=== PATIENT | male | born 1955 | race Hispanic/Latino ===

== ENCOUNTER → 2018-07-02 | Outpatient (CLI) | payer OTHER ==
[~2018-07-02] MED LIST: IOHEXOL-350 75 ML VIAL IV ONE
== END | disposition home or self-care (01) ==
LOC: RAH 07:32
PROVIDERS: ATTEND Internal Medicine Cardiovascular Disease
DX: R07.9 Chest pain, unspecified (principal)
CPT/HCPCS: 75574; Q9967

== ENCOUNTER 2018-07-22 05:51 | Day surgery (SDC) | payer OTHER ==
[2018-07-19 11:10] VITALS: BP 142/82
[2018-07-19 11:46] LABS: BASOPHILS % (AUTO) 0.5 % (0.0-5.0); HEMATOCRIT 48.5 % (42-54); LYMPHOCYTES % (AUTO) 24.9 % (21.0-51.0); MEAN CORPUSCULAR HEMOGLOBIN 31.7 pg (27.0-33.0); MEAN CORPUSCULAR HGB CONC 33.7 g/dL (32.0-36.0); MEAN CORPUSCULAR VOLUME 94.2 fL (79-99); MONOCYTES % (AUTO) 6.6 % (3.0-13.0); PLATELET COUNT (AUTO) 128 K/uL (130-400); RED BLOOD CELL COUNT(AUTO) 5.15 MIL/uL (4.50-6.20); RED CELL DISTRIBUTION WIDTH 14.4 % (11.0-15.5); WHITE BLOOD COUNT (AUTO) 6.7 K/uL (4.8-10.8)
[2018-07-19 11:58] LABS: POTASSIUM 4.6 mmol/L (3.5-5.1)
[2018-07-19 12:03] LABS: INR 1.01 (0.85-1.15); PARTIAL THROMBOPLASTIN TIME 35.2 SEC (26.3-35.5); PROTHROMBIN TIME 10.6 SEC (9.6-11.6)
[2018-07-19 12:07] LABS: APPEARANCE,URINE Clear (CLEAR); BILIRUBIN,URINE Negative (NEGATIVE); COLOR,URINE Yellow (YELLOW); GLUCOSE, URINE (UA) Negative (NEGATIVE); KETONES,URINE Negative (NEGATIVE); LEUKOCYTE ESTERASE ,URINE Negative (NEGATIVE); NITRATE,URINE Negative (NEGATIVE); OCCULT BLOOD,URINE Negative (NEGATIVE); PROTEIN,URINE Negative (NEGATIVE); UROBILINOGEN,URINE 0.2 mg/dL (0.2-1.0)
--- NOTE | 2018-07-21 09:09 | NUR ---
LABS ABNORMAL PLT REPORTED TO JENARO GONZALES. NO FURTHER ORDERS GIVEN
--- NOTE | 2018-07-21 13:49 | NUR ---
ALLERGY INFORMED CHRISTIAN WARE OF PT ALLERGY TO TOPICAL IODINE. ORDERS RECEIVED TO GIVE SOLUMEDROL 125MG IV [employer] DAY OF PROCEDURE, GIVE SINGULAIR 20MG PO [employer]INCIPAL, BENADRYL 25 MG IV [employer]INCIPAL AND WILL ALSO CALL IN STEROIDS FOR PT TO TAKE PRIOR TO PROCEDURE.
--- NOTE | 2018-07-21 15:11 | NUR ---
ALLERGY PT STATES HAS SOME CONCERN ABOUT TAKING STEROIDS PRIOR TO PROCEDURE. STATES HES FINE WITH MEDICATION ORDERED FOR DAY OF PROCEDURE. HE HAS A CALL PLACED TO [facility] TO VOICE CONCERN.
[2018-07-22] VITALS (11 sets, daily range): BP systolic 123–144; BP diastolic 66–77
[~2018-07-22] VITALS: Ht 179.1 cm; Wt 98.3 kg
[~2018-07-22 05:51] MED LIST changes: +DiphenhydrAMINE HCL 50 MG/ML VIAL IVP SCH; -IOHEXOL-350 75 ML VIAL IV ONE; +LEVO112T7 PO; +METHYLPREDNISOLONE SOD SUCC 125MG/2ML VIAL IVP SCH; +MONTELUKAST SODIUM 10 MG TAB PO SCH; +ROSU5TAB PO
[2018-07-22] MEDS ORDERED: SODIUM CHLORIDE 0.9% 1000ML 1,000 ML IV ONE (07:04)
[2018-07-22] MEDS ORDERED: BIVALIRUDIN 250 MG/VIAL IV ONE (07:15)
[2018-07-22] MEDS ORDERED: IOHEXOL-350 50ML VIAL IV ONE (07:15)
[2018-07-22] MEDS ORDERED: IOHEXOL 350 MG/ML 100ML INFUS..BTL IV ONE (07:15)
[2018-07-22] MEDS ORDERED: LIDOCAINE HCL 2% 20ML ONE (07:16)
[2018-07-22] MEDS ORDERED: NITROGLYCERIN 5 MG/ML 10 ML VIAL IV ONE (07:16)
[2018-07-22] MEDS ORDERED: FENTANYL CITRATE PF 50 MCG/1 ML 2ML VIAL ONE (07:39)
[2018-07-22] MEDS ORDERED: MIDAZOLAM HCL 1 MG/ML 2ML VIAL ONE (07:39)
[2018-07-22] MEDS ORDERED: SODIUM CHLORIDE 0.9% 1000ML 1,000 ML IV SCH (08:13)
[2018-07-22] MEDS ORDERED: GLUCAGON 1MG KIT 1 MG ML IM PRN (08:15)
[2018-07-22] MEDS ORDERED: HYDRALAZINE HCL 20 MG/ML VIAL IV PRN (08:15)
[2018-07-22] MEDS ORDERED: NITROGLYCERIN 0.4 MG SL TAB SL PRN (08:15)
[2018-07-22] MEDS ORDERED: DEXTROSE 50%-WATER 50 ML DISP.SYRIN IV PRN (08:15)
== END 2018-07-22 12:20 | disposition home or self-care (01) ==
LOC: DAH 05:51
PROVIDERS: ATTEND Internal Medicine Cardiovascular Disease
DX: I25.119 Atherosclerotic heart disease of native coronary artery with unspecified angina pectoris (principal); E03.9 Hypothyroidism, unspecified; E78.00 Pure hypercholesterolemia, unspecified; C85.90 Non-Hodgkin lymphoma, unspecified, unspecified site; Z98.890 Other specified postprocedural states; Z79.899 Other long term (current) drug therapy; Z79.01 Long term (current) use of anticoagulants
CPT/HCPCS: 36415; 71045; 80048; 81003; 85025; 85610; 85730; 93005; 93458; A4606; C1760; C1894 ×2; J1200; J1644; J2250; J2930; J3010; J3490 ×2; J7030; Q9965; Q9967 ×2; 99156; 99157; J0583

== ENCOUNTER → 2019-08-19 | Outpatient (CLI) | payer OTHER ==
[~2019-08-19] MED LIST changes: -DiphenhydrAMINE HCL 50 MG/ML VIAL IVP SCH; -METHYLPREDNISOLONE SOD SUCC 125MG/2ML VIAL IVP SCH; -MONTELUKAST SODIUM 10 MG TAB PO SCH
== END | disposition home or self-care (01) ==
LOC: RAH 08:09
PROVIDERS: ATTEND Internal Medicine
DX: M51.26 Other intervertebral disc displacement, lumbar region (principal); G57.02 Lesion of sciatic nerve, left lower limb
CPT/HCPCS: 72148

== ENCOUNTER 2019-09-15 07:00 | Day surgery (SDC) | payer OTHER ==
[~2019-09-15] VITALS: Ht 175.3 cm; Wt 117.9 kg
[2019-09-15] VITALS (10 sets, daily range): BP systolic 95–119; BP diastolic 61–75
[2019-09-15] MEDS ORDERED: SODIUM CHLORIDE 0.9% 1000ML 1,000 ML IV ONE (07:18)
[2019-09-15] MEDS ORDERED: PROPOFOL 10 MG/ML 20ML VIAL IV ONE ×3 (08:29→08:56)
[2019-09-15] MEDS ORDERED: LIDOCAINE HCL 2% 20ML ONE (08:29)
[2019-09-15] MEDS ORDERED: GLYCOPYRROLATE 0.2 MG/ML 5 ML VIAL ONE (08:29)
[2019-09-15] MEDS ORDERED: SIMETHICONE 40 MG/0.6 ML ML ONE (08:40)
== END 2019-09-15 09:55 | disposition home or self-care (01) ==
LOC: RAH 07:00 → DAH 07:00 → RAH 09:55
PROVIDERS: ATTEND Internal Medicine
DX: Z12.11 Encounter for screening for malignant neoplasm of colon (principal); D12.0 Benign neoplasm of cecum; K29.50 Unspecified chronic gastritis without bleeding; K57.30 Diverticulosis of large intestine without perforation or abscess without bleeding; K64.0 First degree hemorrhoids; E78.5 Hyperlipidemia, unspecified; E03.9 Hypothyroidism, unspecified; R13.10 Dysphagia, unspecified; K31.89 Other diseases of stomach and duodenum; Z86.010 Personal history of colon polyps; Z79.899 Other long term (current) drug therapy; Z11.59 Encounter for screening for other viral diseases
CPT/HCPCS: 36415; 43239; 43249; 45380; 45385; A4215; A4221; A4222; A4223; A4606; A4620; A4663; J2704 ×3; J3490 ×2; J7030; U0003

== ENCOUNTER → 2019-10-07 | Outpatient (CLI) | payer OTHER ==
[2019-10-07 08:19] LABS: BASOPHILS % (AUTO) 0.5 % (0.0-5.0); EOSINOPHILS % (AUTO) 1.5 % (0.0-8.0); HEMATOCRIT 46.9 % (42-54); LYMPHOCYTES % (AUTO) 26.1 % (21.0-51.0); MEAN CORPUSCULAR HEMOGLOBIN 31.4 pg (27.0-33.0); MEAN CORPUSCULAR HGB CONC 33.5 g/dL (32.0-36.0); MEAN CORPUSCULAR VOLUME 93.8 fL (79-99); MONOCYTES % (AUTO) 8.5 % (3.0-13.0); NEUTROPHILS % (AUTO) 63.1 % (40.0-77.0); PLATELET COUNT (AUTO) 137 K/uL (130-400); WHITE BLOOD COUNT (AUTO) 6.1 K/uL (4.8-10.8)
[2019-10-07 09:04] LABS: ALBUMIN 4.1 g/dL (3.5-5.0); BILIRUBIN,TOTAL 1.2 mg/dL (0.2-1.0); CREATININE 1.2 mg/dL (0.5-1.5); THYROID STIMULATING HORMONE 1.22 uIU/mL (0.36-3.74); TOTAL PROTEIN, SERUM 6.8 g/dL (6.0-8.3)
[2019-10-07 09:24] LABS: HEMOGLOBIN A1C 5.7 % (4.0-6.0)
== END | disposition home or self-care (01) ==
LOC: LAB 07:53
PROVIDERS: ATTEND Internal Medicine
DX: Z00.00 Encounter for general adult medical examination without abnormal findings (principal); E78.00 Pure hypercholesterolemia, unspecified; E55.9 Vitamin D deficiency, unspecified; Z12.5 Encounter for screening for malignant neoplasm of prostate
CPT/HCPCS: 36415; 80053; 80061; 82306; 83036; 84153; 84443; 85025

== ENCOUNTER → 2020-12-10 | Outpatient (CLI) | payer OTHER ==
[2020-12-10 11:55] LABS: BASOPHILS % (AUTO) 0.6 % (0.0-5.0); EOSINOPHILS % (AUTO) 1.6 % (0.0-8.0); HEMATOCRIT 46.3 % (42-54); LYMPHOCYTES % (AUTO) 27.5 % (21.0-51.0); MEAN CORPUSCULAR HEMOGLOBIN 31.3 pg (27.0-33.0); MEAN CORPUSCULAR VOLUME 94.7 fL (79-99); MONOCYTES % (AUTO) 7.8 % (3.0-13.0); NEUTROPHILS % (AUTO) 62.4 % (40.0-77.0); PLATELET COUNT (AUTO) 137 K/uL (130-400); RED BLOOD CELL COUNT(AUTO) 4.89 MIL/uL (4.50-6.20); RED CELL DISTRIBUTION WIDTH 13.9 % (11.0-15.5); WHITE BLOOD COUNT (AUTO) 7.1 K/uL (4.8-10.8)
[2020-12-10 12:48] LABS: ALBUMIN 4.1 g/dL (3.5-5.0); BILIRUBIN,TOTAL 1.7 mg/dL (0.2-1.0); CREATININE 0.9 mg/dL (0.5-1.5); POTASSIUM 4.1 mmol/L (3.5-5.1); THYROID STIMULATING HORMONE 0.66 uIU/mL (0.36-3.74); TOTAL PROTEIN, SERUM 6.9 g/dL (6.0-8.3)
== END | disposition home or self-care (01) ==
LOC: LAB 11:23
PROVIDERS: ATTEND Internal Medicine Endocrinology, Diabetes & Metabolism
DX: Z00.00 Encounter for general adult medical examination without abnormal findings (principal); E89.0 Postprocedural hypothyroidism; E78.00 Pure hypercholesterolemia, unspecified; E66.9 Obesity, unspecified
CPT/HCPCS: 36415; 80053; 80061; 82306; 84153; 84154; 84439; 84443; 84481; 85025

== ENCOUNTER 2021-02-28 13:00 | Observation (INO) | payer OTHER ==
[~2021-02-28] VITALS: Ht 175.3 cm; Wt 98.6 kg
[2021-03-04 08:39] LABS: BASOPHILS % (AUTO) 0.7 % (0.0-5.0); EOSINOPHILS % (AUTO) 2.3 % (0.0-8.0); HEMATOCRIT 46.2 % (42-54); LYMPHOCYTES % (AUTO) 28.1 % (21.0-51.0); MEAN CORPUSCULAR HEMOGLOBIN 30.6 pg (27.0-33.0); MEAN CORPUSCULAR HGB CONC 33.5 g/dL (32.0-36.0); MEAN CORPUSCULAR VOLUME 91.1 fL (79-99); MONOCYTES % (AUTO) 9.1 % (3.0-13.0); NEUTROPHILS % (AUTO) 59.4 % (40.0-77.0); PLATELET COUNT (AUTO) 137 K/uL (130-400); RED BLOOD CELL COUNT(AUTO) 5.07 MIL/uL (4.50-6.20); RED CELL DISTRIBUTION WIDTH 13.8 % (11.0-15.5); WHITE BLOOD COUNT (AUTO) 7.4 K/uL (4.8-10.8)
[2021-03-04 08:50] LABS: CREATININE 1.1 mg/dL (0.5-1.5)
[2021-03-06 10:58] VITALS: BP 137/74
[2021-03-06] MEDS: CLINDAMYCIN IVPB 900MG/50ML 50 ML IV SCH (11:00)
[2021-03-07] VITALS (19 sets, daily range): BP systolic 129–155; BP diastolic 60–85
[2021-03-07] MEDS ORDERED: BUPIVACAINE/EPI/PF 0.25% 30ML VIAL IJ ONE (06:59)
[2021-03-07] MEDS ORDERED: LACTATED RINGERS 1000ML 1,000 ML IV ONE (07:00)
[2021-03-07] MEDS ORDERED: DEXAMETHASONE SOD PHOSPHATE 10MG/ML 1ML VIAL ONE (07:36)
[2021-03-07] MEDS ORDERED: LIDOCAINE PF 100MG/5ML (2%) SYRINGE 5ML ONE (07:36)
[2021-03-07] MEDS ORDERED: SUCCINYLCHOLINE CHLORIDE 20 MG/ML 10 ML VIAL ONE (07:36)
[2021-03-07] MEDS ORDERED: GLYCOPYRROLATE 1 MG/5 ML SYRINGE ONE (07:37)
[2021-03-07] MEDS ORDERED: NEOSTIGMINE 5MG/5ML SYR IV ONE (07:37)
[2021-03-07] MEDS ORDERED: PROPOFOL 10 MG/ML 20ML VIAL IV ONE (07:37)
[2021-03-07] MEDS ORDERED: MIDAZOLAM HCL 1 MG/ML 2ML VIAL ONE (07:37)
[2021-03-07] MEDS ORDERED: ONDANSETRON 4MG INJ ONE (07:37)
[2021-03-07] MEDS ORDERED: ROCURONIUM 10MG/1ML SYR 10 MG/ML ML ONE (07:37)
[2021-03-07] MEDS ORDERED: FENTANYL CITRATE PF 50 MCG/1 ML 2ML VIAL ONE ×2 (07:38→12:13)
[2021-03-07] MEDS: CLINDAMYCIN IVPB 900MG/50ML 50 ML IV SCH (08:34)
[2021-03-07] MEDS ORDERED: THROMBIN-JMI 20000 UNIT KIT TP ONE (11:28)
== END 2021-03-07 15:20 | disposition home or self-care (01) ==
LOC: EDSTATUS 13:00 → DAHIP 03-07 06:25
PROVIDERS: ADMIT Surgery; ATTEND Surgery
DX: C73 Malignant neoplasm of thyroid gland (principal); Z20.822 Contact with and (suspected) exposure to COVID-19; E03.9 Hypothyroidism, unspecified; E78.00 Pure hypercholesterolemia, unspecified; E66.9 Obesity, unspecified; Z68.32 Body mass index [BMI] 32.0-32.9, adult; Z79.899 Other long term (current) drug therapy
CPT/HCPCS: 36415 ×2; 38510; 60240; 80048; 82310; 83970; 85025; 87635; 93005; A4215; A4216; A4221; A4222; A4223; A4600; A4649 ×2; A4663; A6206; C1713; G0378 ×5; G0379; J0330; J1100; J2001; J2250; J2405; J2704; J2710; J3010 ×2; J3490 ×3; J7120

== ENCOUNTER 2021-03-09 14:00 | Inpatient (IN) | payer OTHER ==
[~2021-03-09] VITALS: Ht 175.3 cm; Wt 90.9 kg
[2021-03-09 16:28] VITALS: BP 120/69
[2021-03-09] MEDS ORDERED: LACTATED RINGERS 1000ML 1,000 ML IV ONE (17:55)
[2021-03-09] MEDS ORDERED: MORPHINE 2 MG SYG IV PRN (18:00)
[2021-03-09] MEDS ORDERED: ONDANSETRON 4MG INJ IV PRN (18:00)
[2021-03-09] MEDS: LACTATED RINGERS 1000ML 1,000 ML IV SCH (18:00)
[2021-03-09 18:09] LABS: HEMATOCRIT 47.8 % (42-54); MEAN CORPUSCULAR HEMOGLOBIN 31.3 pg (27.0-33.0); MEAN CORPUSCULAR HGB CONC 33.3 g/dL (32.0-36.0); MEAN CORPUSCULAR VOLUME 94.1 fL (79-99); RED BLOOD CELL COUNT(AUTO) 5.08 MIL/uL (4.50-6.20); RED CELL DISTRIBUTION WIDTH 13.6 % (11.0-15.5)
[2021-03-09 18:28] LABS: BILIRUBIN,TOTAL 2.3 mg/dL (0.2-1.0); CREATININE 1.1 mg/dL (0.5-1.5); POTASSIUM 3.7 mmol/L (3.5-5.1); TOTAL PROTEIN, SERUM 7.5 g/dL (6.0-8.3)
[2021-03-09] MEDS ORDERED: DEXA6TAB7 PO (18:36)
[2021-03-09] MEDS ORDERED: ACET1TAB25 PO (18:36)
[2021-03-09] MEDS ORDERED: DEXAMETHASONE SOD PHOSPHATE 4 MG/ML 1ML VIAL ONE (19:55)
[2021-03-09 20:00] VITALS: BP 120/63
[2021-03-09] MEDS: PANTOPRAZOLE 40 MG/VIAL IVP SCH (20:10)
[2021-03-09] MEDS: DEXAMETHASONE SOD PHOSPHATE 4 MG/ML 1ML VIAL IVP SCH (20:10)
[2021-03-10] VITALS: BP 110/65
[2021-03-10 03:50] LABS: HEMATOCRIT 44.9 % (42-54); MEAN CORPUSCULAR HEMOGLOBIN 30.1 pg (27.0-33.0); MEAN CORPUSCULAR HGB CONC 32.5 g/dL (32.0-36.0); MEAN CORPUSCULAR VOLUME 92.6 fL (79-99); RED BLOOD CELL COUNT(AUTO) 4.85 MIL/uL (4.50-6.20); RED CELL DISTRIBUTION WIDTH 13.8 % (11.0-15.5); WHITE BLOOD COUNT (AUTO) 14.7 K/uL (4.8-10.8)
[2021-03-10 04:00] VITALS: BP 114/60
[2021-03-10 04:01] LABS: POTASSIUM 3.9 mmol/L (3.5-5.1)
[2021-03-10 07:50] VITALS: BP 115/60
[2021-03-10] MEDS: PANTOPRAZOLE 40 MG/VIAL IVP SCH ×2 (08:55→20:49)
[2021-03-10] MEDS: DEXAMETHASONE SOD PHOSPHATE 4 MG/ML 1ML VIAL IVP SCH ×3 (09:01→20:48)
[2021-03-10 10:59] VITALS: BP 125/63
[2021-03-10] MEDS: LACTATED RINGERS 1000ML 1,000 ML IV SCH ×3 (14:00→23:01)
[2021-03-10 16:29] VITALS: BP 120/66
[2021-03-10 20:00] VITALS: BP 125/64
[2021-03-11] VITALS (7 sets, daily range): BP systolic 110–136; BP diastolic 61–76
[2021-03-11 04:19] LABS: BASOPHILS % (AUTO) 0.1 % (0.0-5.0); HEMATOCRIT 44.1 % (42-54); LYMPHOCYTES % (AUTO) 6.6 % (21.0-51.0); MEAN CORPUSCULAR HEMOGLOBIN 30.7 pg (27.0-33.0); MEAN CORPUSCULAR HGB CONC 32.9 g/dL (32.0-36.0); MEAN CORPUSCULAR VOLUME 93.4 fL (79-99); MONOCYTES % (AUTO) 4.3 % (3.0-13.0); NEUTROPHILS % (AUTO) 88.5 % (40.0-77.0); PLATELET COUNT (AUTO) 155 K/uL (130-400); RED BLOOD CELL COUNT(AUTO) 4.72 MIL/uL (4.50-6.20); RED CELL DISTRIBUTION WIDTH 13.7 % (11.0-15.5); WHITE BLOOD COUNT (AUTO) 17.8 K/uL (4.8-10.8)
[2021-03-11 04:33] LABS: POTASSIUM 4.1 mmol/L (3.5-5.1)
[2021-03-11] MEDS: PANTOPRAZOLE 40 MG/VIAL IVP SCH ×2 (09:17→19:46)
[2021-03-11] MEDS: DEXAMETHASONE SOD PHOSPHATE 4 MG/ML 1ML VIAL IVP SCH ×3 (09:17→19:46)
[2021-03-11] MEDS: LACTATED RINGERS 1000ML 1,000 ML IV SCH ×2 (09:57→10:00)
[2021-03-12 04:00] VITALS: BP 122/75
[2021-03-12] MEDS: LACTATED RINGERS 1000ML 1,000 ML IV SCH ×2 (04:28→14:23)
[2021-03-12 06:00] LABS: MEAN CORPUSCULAR HEMOGLOBIN 30.7 pg (27.0-33.0); MEAN CORPUSCULAR HGB CONC 33.3 g/dL (32.0-36.0); MEAN CORPUSCULAR VOLUME 92.3 fL (79-99); RED BLOOD CELL COUNT(AUTO) 4.66 MIL/uL (4.50-6.20); RED CELL DISTRIBUTION WIDTH 13.7 % (11.0-15.5); WHITE BLOOD COUNT (AUTO) 15.7 K/uL (4.8-10.8)
[2021-03-12 06:13] LABS: CREATININE 0.9 mg/dL (0.5-1.5); POTASSIUM 4.2 mmol/L (3.5-5.1)
[2021-03-12 08:34] VITALS: BP 121/67
[2021-03-12] MEDS: PANTOPRAZOLE 40 MG/VIAL IVP SCH ×2 (09:21→21:47)
[2021-03-12] MEDS: DEXAMETHASONE SOD PHOSPHATE 4 MG/ML 1ML VIAL IVP SCH ×3 (09:21→21:47)
[2021-03-12 10:59] VITALS: BP 121/69
[2021-03-12 17:48] VITALS: BP 130/72
[2021-03-12 20:39] VITALS: BP 130/68
[2021-03-12 23:57] VITALS: BP 128/75
[2021-03-13] MEDS: LACTATED RINGERS 1000ML 1,000 ML IV SCH (01:35)
[2021-03-13 04:54] VITALS: BP 121/71
[2021-03-13] MEDS: DEXAMETHASONE SOD PHOSPHATE 4 MG/ML 1ML VIAL IVP SCH ×3 (07:58→21:00)
[2021-03-13 09:03] VITALS: BP 120/70
[2021-03-13] MEDS: PANTOPRAZOLE 40 MG/VIAL IVP SCH ×2 (09:11→21:41)
[2021-03-13 12:32] LABS: BASOPHILS % (AUTO) 0.1 % (0.0-5.0); HEMATOCRIT 47.1 % (42-54); LYMPHOCYTES % (AUTO) 4.9 % (21.0-51.0); MEAN CORPUSCULAR HEMOGLOBIN 31.3 pg (27.0-33.0); MEAN CORPUSCULAR HGB CONC 34.4 g/dL (32.0-36.0); MEAN CORPUSCULAR VOLUME 90.9 fL (79-99); MONOCYTES % (AUTO) 9.5 % (3.0-13.0); NEUTROPHILS % (AUTO) 84.9 % (40.0-77.0); PLATELET COUNT (AUTO) 155 K/uL (130-400); RED BLOOD CELL COUNT(AUTO) 5.18 MIL/uL (4.50-6.20); RED CELL DISTRIBUTION WIDTH 13.6 % (11.0-15.5)
[2021-03-13 12:56] LABS: CARBON DIOXIDE 27 mmol/L (21-32); CHLORIDE 105 mmol/L (101-111); CREATININE 0.9 mg/dL (0.5-1.5); GLOMERULAR FILTR. RATE CALC 91 mL/min (>60); GLUCOSE,RANDOM 108 mg/dL (70-105); POTASSIUM 3.9 mmol/L (3.5-5.1); SODIUM SERUM 140 mmol/L (136-145); UREA NITROGEN, BLOOD 23 mg/dL (7-18)
[2021-03-13 13:06] LABS: ALANINE AMINOTRANSFERASE 30 U/L (12-78); ALBUMIN 3.3 g/dL (3.5-5.0); ASPARTATE AMINOTRANSFERASE 12 U/L (10-37); BILIRUBIN,TOTAL 1.5 mg/dL (0.2-1.0); TOTAL PROTEIN, SERUM 6.3 g/dL (6.0-8.3)
[2021-03-13 13:14] LABS: CRP QUANTITATIVE < 2.00 mg/L (0.00-9.0)
[2021-03-13 13:30] VITALS: BP 111/68
[2021-03-13 13:55] LABS: ERYTHROCYTE SEDIMENTATION RATE 5 MM/HR (0-20)
[2021-03-13 17:18] VITALS: BP 115/71
[2021-03-13 19:15] VITALS: BP 126/73
[2021-03-14] VITALS: BP 109/65
[2021-03-14 05:03] VITALS: BP 106/69
[2021-03-14 05:13] LABS: EOSINOPHILS % (AUTO) 0.2 % (0.0-8.0); LYMPHOCYTES % (AUTO) 12.2 % (21.0-51.0); MEAN CORPUSCULAR HEMOGLOBIN 30.4 pg (27.0-33.0); MEAN CORPUSCULAR HGB CONC 33.2 g/dL (32.0-36.0); MEAN CORPUSCULAR VOLUME 91.7 fL (79-99); MONOCYTES % (AUTO) 15.5 % (3.0-13.0); NEUTROPHILS % (AUTO) 71.5 % (40.0-77.0); PLATELET COUNT (AUTO) 116 K/uL (130-400); RED CELL DISTRIBUTION WIDTH 13.5 % (11.0-15.5); WHITE BLOOD COUNT (AUTO) 10.4 K/uL (4.8-10.8)
[2021-03-14 05:32] LABS: ALBUMIN 2.8 g/dL (3.5-5.0); BILIRUBIN,TOTAL 1.6 mg/dL (0.2-1.0); CREATININE 1.2 mg/dL (0.5-1.5); POTASSIUM 3.6 mmol/L (3.5-5.1); TOTAL PROTEIN, SERUM 5.2 g/dL (6.0-8.3)
[2021-03-14 07:15] VITALS: BP 110/66
[2021-03-14] MEDS: DEXAMETHASONE SOD PHOSPHATE 4 MG/ML 1ML VIAL IVP SCH ×3 (09:00→21:00)
[2021-03-14] MEDS: PANTOPRAZOLE 40 MG/VIAL IVP SCH ×2 (09:14→21:26)
[2021-03-14 11:05] VITALS: BP 110/63
[2021-03-14] MEDS ORDERED: PHARMACY COMMUNICATION MISC SCH (13:30)
[2021-03-14 15:05] VITALS: BP 116/70
[2021-03-14] MEDS ORDERED: BIOTENE 44.3 ML SOLUTION MM PRN (17:00)
[2021-03-14 20:00] VITALS: BP 118/54
[2021-03-14] MEDS ORDERED: LACTATED RINGERS 1000ML 1,000 ML IV ONE (20:22)
[2021-03-14] MEDS: LACTATED RINGERS 1000ML 1,000 ML IV SCH (21:29)
[2021-03-15 00:07] VITALS: BP 135/69
[2021-03-15 04:01] VITALS: BP 128/69
[2021-03-15 04:59] LABS: BASOPHILS % (AUTO) 0.1 % (0.0-5.0); EOSINOPHILS % (AUTO) 0.9 % (0.0-8.0); HEMATOCRIT 46.4 % (42-54); LYMPHOCYTES % (AUTO) 16.9 % (21.0-51.0); MEAN CORPUSCULAR HEMOGLOBIN 30.9 pg (27.0-33.0); MEAN CORPUSCULAR HGB CONC 33.4 g/dL (32.0-36.0); MEAN CORPUSCULAR VOLUME 92.6 fL (79-99); MONOCYTES % (AUTO) 11.6 % (3.0-13.0); PLATELET COUNT (AUTO) 116 K/uL (130-400); RED BLOOD CELL COUNT(AUTO) 5.01 MIL/uL (4.50-6.20); RED CELL DISTRIBUTION WIDTH 13.7 % (11.0-15.5); WHITE BLOOD COUNT (AUTO) 8.9 K/uL (4.8-10.8)
[2021-03-15 05:40] LABS: BILIRUBIN,TOTAL 1.6 mg/dL (0.2-1.0); POTASSIUM 3.8 mmol/L (3.5-5.1); TOTAL PROTEIN, SERUM 5.7 g/dL (6.0-8.3)
[2021-03-15] MEDS: PANTOPRAZOLE 40 MG/VIAL IVP SCH ×2 (09:00→20:57)
[2021-03-15] MEDS: DEXAMETHASONE SOD PHOSPHATE 4 MG/ML 1ML VIAL IVP SCH ×3 (09:00→21:00)
[2021-03-15] MEDS: LACTATED RINGERS 1000ML 1,000 ML IV SCH (09:15)
[2021-03-15 09:36] VITALS: BP 117/78
[2021-03-15] MEDS ORDERED: PILOCARPINE HCL 5 MG TABLET PO SCH (10:00)
[2021-03-15] MEDS: PILOCARPINE HCL 5 MG TABLET PO SCH ×2 (12:56→21:00)
[2021-03-15 13:26] VITALS: BP 119/74
[2021-03-15 16:42] VITALS: BP 120/69
[2021-03-15 20:40] VITALS: BP 135/77
[2021-03-16] VITALS (26 sets, daily range): BP systolic 100–145; BP diastolic 60–92
[2021-03-16] MEDS: LACTATED RINGERS 1000ML 1,000 ML IV SCH ×4 (00:28→14:51)
[2021-03-16 03:53] LABS: BASOPHILS % (AUTO) 0.1 % (0.0-5.0); EOSINOPHILS % (AUTO) 1.6 % (0.0-8.0); LYMPHOCYTES % (AUTO) 17.7 % (21.0-51.0); MEAN CORPUSCULAR HEMOGLOBIN 30.1 pg (27.0-33.0); MEAN CORPUSCULAR HGB CONC 33.4 g/dL (32.0-36.0); MONOCYTES % (AUTO) 9.8 % (3.0-13.0); NEUTROPHILS % (AUTO) 70.2 % (40.0-77.0); PLATELET COUNT (AUTO) 142 K/uL (130-400); RED BLOOD CELL COUNT(AUTO) 5.22 MIL/uL (4.50-6.20); RED CELL DISTRIBUTION WIDTH 13.4 % (11.0-15.5); WHITE BLOOD COUNT (AUTO) 9.8 K/uL (4.8-10.8)
[2021-03-16 04:04] LABS: BILIRUBIN,TOTAL 1.8 mg/dL (0.2-1.0); POTASSIUM 3.3 mmol/L (3.5-5.1); TOTAL PROTEIN, SERUM 5.8 g/dL (6.0-8.3)
[2021-03-16 05:06] LABS: INR 1.15 (0.85-1.15); PROTHROMBIN TIME 12.4 SEC (9.6-11.6)
[2021-03-16] MEDS: DEXAMETHASONE SOD PHOSPHATE 4 MG/ML 1ML VIAL IVP SCH ×2 (09:00→09:22)
[2021-03-16] MEDS: PILOCARPINE HCL 5 MG TABLET PO SCH ×3 (09:00→20:45)
[2021-03-16] MEDS: PANTOPRAZOLE 40 MG/VIAL IVP SCH ×2 (09:22→20:45)
[2021-03-16] MEDS ORDERED: PROPOFOL 10 MG/ML 20ML VIAL IV ONE (09:35)
[2021-03-16] MEDS: LIDOCAINE HCL-MPF 1% 2ML VIAL IV PRN (10:56)
[2021-03-16] MEDS: POTASSIUM CHLORIDE 20MEQ/100ML 100 ML IV PRN (10:56)
[2021-03-16] MEDS ORDERED: GLYCOPYRROLATE 1 MG/5 ML SYRINGE ONE (11:32)
[2021-03-16] MEDS ORDERED: CEFAZOLIN SODIUM 1 GM VIAL ONE (11:54)
[2021-03-16] MEDS ORDERED: MEPERIDINE-PF 25 MG/ML SYG ONE (12:58)
[2021-03-16] MEDS ORDERED: LEVOTHYROXINE 112 MCG TABLET PEG SCH (14:30)
[2021-03-16] MEDS ORDERED: ACETAMINOPHEN WITH CODEINE 1 TAB TAB PEG PRN (14:30)
[2021-03-16] MEDS ORDERED: POTASSIUM CHLORIDE 10% ELIXIR 20 MEQ/15 ML UDCUP PO ONE (15:20)
[2021-03-17] MEDS: LACTATED RINGERS 1000ML 1,000 ML IV SCH (02:22)
[2021-03-17 03:50] LABS: BASOPHILS % (AUTO) 0.1 % (0.0-5.0); EOSINOPHILS % (AUTO) 0.7 % (0.0-8.0); HEMATOCRIT 43.5 % (42-54); LYMPHOCYTES % (AUTO) 8.9 % (21.0-51.0); MEAN CORPUSCULAR HEMOGLOBIN 30.7 pg (27.0-33.0); MEAN CORPUSCULAR HGB CONC 33.6 g/dL (32.0-36.0); MEAN CORPUSCULAR VOLUME 91.6 fL (79-99); MONOCYTES % (AUTO) 9.8 % (3.0-13.0); PLATELET COUNT (AUTO) 129 K/uL (130-400); RED BLOOD CELL COUNT(AUTO) 4.75 MIL/uL (4.50-6.20); RED CELL DISTRIBUTION WIDTH 13.3 % (11.0-15.5)
[2021-03-17 03:59] LABS: MAGNESIUM 2.2 mg/dL (1.80-2.40); PHOSPHORUS 3.2 mg/dL (2.5-4.9); POTASSIUM 3.9 mmol/L (3.5-5.1)
[2021-03-17 04:00] VITALS: BP 111/66
[2021-03-17] MEDS: LEVOTHYROXINE 112 MCG TABLET PO SCH (05:59)
[2021-03-17 08:36] VITALS: BP 113/65
[2021-03-17] MEDS: PANTOPRAZOLE 40 MG/VIAL IVP SCH ×2 (09:17→20:45)
[2021-03-17] MEDS: PILOCARPINE HCL 5 MG TABLET PO SCH ×3 (09:17→20:45)
[2021-03-17 11:06] VITALS: BP 114/66
[2021-03-17 16:55] VITALS: BP 105/62
[2021-03-17 20:11] VITALS: BP 107/63
[2021-03-18 04:32] VITALS: BP 114/61
[2021-03-18] MEDS: LEVOTHYROXINE 112 MCG TABLET PO SCH (05:44)
[2021-03-18 06:40] LABS: BASOPHILS % (AUTO) 0.1 % (0.0-5.0); MEAN CORPUSCULAR HEMOGLOBIN 30.2 pg (27.0-33.0); MEAN CORPUSCULAR HGB CONC 33.1 g/dL (32.0-36.0); MEAN CORPUSCULAR VOLUME 91.1 fL (79-99); MONOCYTES % (AUTO) 12.6 % (3.0-13.0); NEUTROPHILS % (AUTO) 74.7 % (40.0-77.0); PLATELET COUNT (AUTO) 126 K/uL (130-400); RED BLOOD CELL COUNT(AUTO) 4.94 MIL/uL (4.50-6.20); RED CELL DISTRIBUTION WIDTH 13.7 % (11.0-15.5); WHITE BLOOD COUNT (AUTO) 13.4 K/uL (4.8-10.8)
[2021-03-18 06:46] LABS: POTASSIUM 3.1 mmol/L (3.5-5.1)
[2021-03-18 07:30] VITALS: BP 115/68
[2021-03-18] MEDS: PILOCARPINE HCL 5 MG TABLET PO SCH ×2 (09:00→09:31)
[2021-03-18] MEDS: PANTOPRAZOLE 40 MG/VIAL IVP SCH (09:27)
[2021-03-18 11:00] VITALS: BP 113/65
[2021-03-18] MEDS: LIDOCAINE HCL-MPF 1% 2ML VIAL IV PRN (11:38)
[2021-03-18] MEDS: POTASSIUM CHLORIDE 20MEQ/100ML 100 ML IV PRN (11:39)
[2021-03-18] MEDS ORDERED: POTASSIUM CHLORIDE 10% ELIXIR 20 MEQ/15 ML UDCUP ONE (11:54)
[2021-03-18] MEDS ORDERED: POTASSIUM CHLORIDE 10% ELIXIR 20 MEQ/15 ML UDCUP PO PRN (12:30)
[2021-03-18 16:00] VITALS: BP 124/69
== END 2021-03-18 18:00 | disposition home or self-care (01) | DRG 392 ==
LOC: OBSVTOIN 14:00 → 4AH 14:00 → 4CH 03-11 12:32
PROVIDERS: ADMIT Internal Medicine; ATTEND Internal Medicine
PROC: 0DH63UZ Insertion of Feeding Device into Stomach, Percutaneous Approach (ICD-10-PCS; principal; 2021-03-16)
DX: R13.12 Dysphagia, oropharyngeal phase (principal); C85.90 Non-Hodgkin lymphoma, unspecified, unspecified site; E86.0 Dehydration; Z20.822 Contact with and (suspected) exposure to COVID-19; J98.2 Interstitial emphysema; E89.0 Postprocedural hypothyroidism; D69.6 Thrombocytopenia, unspecified; R63.30 Feeding difficulties, unspecified; K76.0 Fatty (change of) liver, not elsewhere classified; S10.93XA Contusion of unspecified part of neck, initial encounter; Y93.89 Activity, other specified; Y92.89 Other specified places as the place of occurrence of the external cause; Y99.8 Other external cause status; Z88.0 Allergy status to penicillin; Z88.8 Allergy status to other drugs, medicaments and biological substances; Z91.041 Radiographic dye allergy status; Z90.49 Acquired absence of other specified parts of digestive tract; Z82.5 Family history of asthma and other chronic lower respiratory diseases; Z82.3 Family history of stroke; Z83.3 Family history of diabetes mellitus; Z80.9 Family history of malignant neoplasm, unspecified; Z82.49 Family history of ischemic heart disease and other diseases of the circulatory system
CPT/HCPCS: 36415; 43246; 70490; 74230; 76700; 80048; 80053; 83735; 84100; 84134; 84145; 85025; 85027; 85610; 85651; 86140; 87426; 92526; 92611; A4606; C9113; G0378; J0690; J1100; J2175; J2704; J3480; J3490; J7120

== ENCOUNTER → 2021-04-17 | Outpatient (CLI) | payer OTHER ==
[~2021-04-17] MED LIST changes: +ACET1TAB25 PO
[2021-04-17 09:23] LABS: BASOPHILS % (AUTO) 0.6 % (0.0-5.0); EOSINOPHILS % (AUTO) 0.9 % (0.0-8.0); HEMATOCRIT 46.4 % (42-54); LYMPHOCYTES % (AUTO) 20.8 % (21.0-51.0); MEAN CORPUSCULAR HEMOGLOBIN 31.1 pg (27.0-33.0); MEAN CORPUSCULAR HGB CONC 32.3 g/dL (32.0-36.0); MEAN CORPUSCULAR VOLUME 96.1 fL (79-99); MONOCYTES % (AUTO) 8.7 % (3.0-13.0); NEUTROPHILS % (AUTO) 68.5 % (40.0-77.0); PLATELET COUNT (AUTO) 120 K/uL (130-400); RED BLOOD CELL COUNT(AUTO) 4.83 MIL/uL (4.50-6.20); WHITE BLOOD COUNT (AUTO) 6.5 K/uL (4.8-10.8)
[2021-04-17 09:51] LABS: ALBUMIN 4.3 g/dL (3.5-5.0); BILIRUBIN,TOTAL 1.3 mg/dL (0.2-1.0); CREATININE 0.8 mg/dL (0.5-1.5); POTASSIUM 3.8 mmol/L (3.5-5.1); THYROID STIMULATING HORMONE 1.25 uIU/mL (0.36-3.74); TOTAL PROTEIN, SERUM 7.1 g/dL (6.0-8.3)
== END | disposition home or self-care (01) ==
LOC: LAB 08:20
PROVIDERS: ATTEND Surgery
DX: Z00.00 Encounter for general adult medical examination without abnormal findings (principal); C73 Malignant neoplasm of thyroid gland; Z93.1 Gastrostomy status
CPT/HCPCS: 36415; 80053; 82306; 83970; 84432; 84439; 84443; 84481; 85025; 86800

== ENCOUNTER → 2021-07-18 | Outpatient (CLI) | payer OTHER ==
[~2021-07-18] MED LIST changes: +ACET-2079 PO; -ACET1TAB25 PO
[2021-07-18 09:15] LABS: CREATININE 0.9 mg/dL (0.5-1.5); POTASSIUM 4.4 mmol/L (3.5-5.1)
[2021-07-18 09:26] LABS: ALBUMIN 3.9 g/dL (3.5-5.0); BILIRUBIN,TOTAL 1.2 mg/dL (0.2-1.0); THYROID STIMULATING HORMONE 0.01 uIU/mL (0.36-3.74); TOTAL PROTEIN, SERUM 6.5 g/dL (6.0-8.3)
== END | disposition home or self-care (01) ==
LOC: LAB 08:13
PROVIDERS: ATTEND Internal Medicine
DX: Z00.00 Encounter for general adult medical examination without abnormal findings (principal); E89.0 Postprocedural hypothyroidism; E78.00 Pure hypercholesterolemia, unspecified; E66.9 Obesity, unspecified; Z80.42 Family history of malignant neoplasm of prostate
CPT/HCPCS: 36415; 80053; 80061; 84153; 84154; 84443

== ENCOUNTER → 2021-12-27 | Outpatient (CLI) | payer OTHER ==
[2021-12-27 09:23] LABS: BASOPHILS % (AUTO) 0.7 % (0.0-5.0); EOSINOPHILS % (AUTO) 1.6 % (0.0-8.0); LYMPHOCYTES % (AUTO) 32.1 % (21.0-51.0); MEAN CORPUSCULAR HEMOGLOBIN 30.5 pg (27.0-33.0); MEAN CORPUSCULAR HGB CONC 33.6 g/dL (32.0-36.0); MEAN CORPUSCULAR VOLUME 90.7 fL (79-99); MONOCYTES % (AUTO) 7.6 % (3.0-13.0); NEUTROPHILS % (AUTO) 57.7 % (40.0-77.0); PLATELET COUNT (AUTO) 137 K/uL (130-400); RED BLOOD CELL COUNT(AUTO) 5.18 MIL/uL (4.50-6.20); RED CELL DISTRIBUTION WIDTH 13.4 % (11.0-15.5); WHITE BLOOD COUNT (AUTO) 6.7 K/uL (4.8-10.8)
[2021-12-27 09:39] LABS: HEMOGLOBIN A1C 5.4 % (4.0-6.0)
[2021-12-27 10:10] LABS: ALANINE AMINOTRANSFERASE 15 U/L (12-78); ALBUMIN 4.1 g/dL (3.5-5.0); ASPARTATE AMINOTRANSFERASE 11 U/L (10-37); CARBON DIOXIDE 30 mmol/L (21-32); CHLORIDE 104 mmol/L (101-111); CHOLESTEROL 140 mg/dL (<200); CREATININE 0.9 mg/dL (0.5-1.5); GLOMERULAR FILTR. RATE CALC 90 mL/min (>60); GLUCOSE,RANDOM 102 mg/dL (70-105); HDL CHOLESTEROL 48 mg/dL (29-71); LDL DIRECT 80 mg/dL (0-99); POTASSIUM 3.9 mmol/L (3.5-5.1); SODIUM SERUM 140 mmol/L (136-145); TOTAL PROTEIN, SERUM 6.9 g/dL (6.0-8.3); TRIGLYCERIDES 63 mg/dL (30-200); UREA NITROGEN, BLOOD 11 mg/dL (7-18)
[2021-12-27 10:17] LABS: THYROID STIMULATING HORMONE < 0.01 uIU/mL (0.36-3.74)
== END | disposition home or self-care (01) ==
LOC: LAB 08:00
PROVIDERS: ATTEND Internal Medicine Endocrinology, Diabetes & Metabolism
DX: C73 Malignant neoplasm of thyroid gland (principal)
CPT/HCPCS: 36415; 80053; 80061; 82043; 82306; 83036; 84153; 84154; 84432; 84439; 84443; 84481; 85025; 86800

== ENCOUNTER → 2022-03-05 | Outpatient (CLI) | payer OTHER | END | disposition home or self-care (01) | LOC: RAH 08:30 | PROVIDERS: ATTEND Internal Medicine Endocrinology, Diabetes & Metabolism | DX: C73 Malignant neoplasm of thyroid gland (principal); E89.0 Postprocedural hypothyroidism | CPT/HCPCS: 76536 ==

== ENCOUNTER → 2022-05-26 | Outpatient (CLI) | payer OTHER | END | disposition home or self-care (01) | LOC: RAH 10:17 | PROVIDERS: ATTEND Internal Medicine | DX: R22.0 Localized swelling, mass and lump, head (principal); R51.9 Headache, unspecified; C85.90 Non-Hodgkin lymphoma, unspecified, unspecified site | CPT/HCPCS: 70450 ==

== ENCOUNTER → 2022-06-20 | Outpatient (CLI) | payer OTHER ==
[2022-06-20 09:19] LABS: THYROID STIMULATING HORMONE < 0.01 uIU/mL (0.36-3.74)
== END | disposition home or self-care (01) ==
LOC: LAB 07:42
PROVIDERS: ATTEND Internal Medicine Endocrinology, Diabetes & Metabolism
DX: C73 Malignant neoplasm of thyroid gland (principal)
CPT/HCPCS: 36415; 84439; 84443; 84481

== ENCOUNTER → 2023-01-02 | Outpatient (CLI) | payer OTHER ==
[2023-01-02 08:39] LABS: BASOPHILS # (AUTO) 0.04 K/uL (0.00-0.20); BASOPHILS % (AUTO) 0.6 % (0.0-5.0); EOSINOPHILS # (AUTO) 0.16 K/uL (0.00-0.70); EOSINOPHILS % (AUTO) 2.3 % (0.0-8.0); HEMATOCRIT 45.6 % (42-54); IMMATURE GRANULOCYTE ABSOLUTE 0.02 K/uL (0-1); LYMPHOCYTES % (AUTO) 29.5 % (21.0-51.0); MEAN CORPUSCULAR HEMOGLOBIN 31.1 pg (27.0-33.0); MEAN CORPUSCULAR HGB CONC 33.3 g/dL (32.0-36.0); MEAN CORPUSCULAR VOLUME 93.3 fL (79-99); MONOCYTES # (AUTO) 0.6 K/uL (0.1-1.0); MONOCYTES % (AUTO) 8.8 % (3.0-13.0); NEUTROPHILS % (AUTO) 58.5 % (40.0-77.0); PLATELET COUNT (AUTO) 144 K/uL (130-400); RED BLOOD CELL COUNT(AUTO) 4.89 MIL/uL (4.50-6.20); RED CELL DISTRIBUTION WIDTH 14.3 % (11.0-15.5); WHITE BLOOD COUNT (AUTO) 6.9 K/uL (4.8-10.8)
[2023-01-02 08:48] LABS: HEMOGLOBIN A1C 5.2 % (4.0-6.0)
[2023-01-02 09:07] LABS: ALBUMIN 3.9 g/dL (3.5-5.0); BILIRUBIN,TOTAL 1.4 mg/dL (0.2-1.0); CREATININE 0.9 mg/dL (0.5-1.5); THYROID STIMULATING HORMONE 0.01 uIU/mL (0.36-3.74); TOTAL PROTEIN, SERUM 6.5 g/dL (6.0-8.3)
== END | disposition home or self-care (01) ==
LOC: LAB 07:46
PROVIDERS: ATTEND Internal Medicine
DX: Z00.00 Encounter for general adult medical examination without abnormal findings (principal); N40.1 Benign prostatic hyperplasia with lower urinary tract symptoms; E78.00 Pure hypercholesterolemia, unspecified
CPT/HCPCS: 36415; 80053; 80061; 83036; 84153; 84154; 84436; 84439; 84443; 84481; 85025

== ENCOUNTER → 2023-04-23 | Outpatient (CLI) | payer OTHER ==
[2023-04-23 09:24] LABS: THYROID STIMULATING HORMONE 0.02 uIU/mL (0.36-3.74)
== END | disposition home or self-care (01) ==
LOC: LAB 07:42
PROVIDERS: ATTEND Internal Medicine Endocrinology, Diabetes & Metabolism
DX: C73 Malignant neoplasm of thyroid gland (principal)
CPT/HCPCS: 36415; 76536; 84432; 84439; 84443; 84481; 86800

== ENCOUNTER → 2023-08-12 | Outpatient (CLI) | payer OTHER ==
[2023-08-12 07:58] LABS: BASOPHILS # (AUTO) 0.04 K/uL (0.00-0.20); BASOPHILS % (AUTO) 0.6 % (0.0-5.0); EOSINOPHILS # (AUTO) 0.15 K/uL (0.00-0.70); EOSINOPHILS % (AUTO) 2.4 % (0.0-8.0); HEMATOCRIT 44.5 % (42-54); IMMATURE GRANULOCYTE ABSOLUTE 0.02 K/uL (0-1); LYMPHOCYTES % (AUTO) 31.5 % (21.0-51.0); MEAN CORPUSCULAR HEMOGLOBIN 31.3 pg (27.0-33.0); MEAN CORPUSCULAR HGB CONC 33.9 g/dL (32.0-36.0); MEAN CORPUSCULAR VOLUME 92.3 fL (79-99); MONOCYTES # (AUTO) 0.6 K/uL (0.1-1.0); MONOCYTES % (AUTO) 8.8 % (3.0-13.0); NEUTROPHILS # (AUTO) 3.6 K/uL (1.8-7.7); NEUTROPHILS % (AUTO) 56.4 % (40.0-77.0); PLATELET COUNT (AUTO) 137 K/uL (130-400); RED BLOOD CELL COUNT(AUTO) 4.82 MIL/uL (4.50-6.20); RED CELL DISTRIBUTION WIDTH 13.8 % (11.0-15.5); WHITE BLOOD COUNT (AUTO) 6.4 K/uL (4.8-10.8)
[2023-08-12 08:10] LABS: HEMOGLOBIN A1C 5.4 % (4.0-6.0)
[2023-08-12 08:24] LABS: ALBUMIN 3.9 g/dL (3.5-5.0); BILIRUBIN,TOTAL 1.5 mg/dL (0.2-1.0); CREATININE 0.9 mg/dL (0.5-1.3); POTASSIUM 3.6 mmol/L (3.5-5.1); TOTAL PROTEIN, SERUM 6.4 g/dL (6.0-8.3)
== END | disposition home or self-care (01) ==
LOC: LAB 08-11 16:36
PROVIDERS: ATTEND Internal Medicine
DX: Z00.00 Encounter for general adult medical examination without abnormal findings (principal); N40.0 Benign prostatic hyperplasia without lower urinary tract symptoms; E78.00 Pure hypercholesterolemia, unspecified
CPT/HCPCS: 36415; 80053; 80061; 82043; 82570; 83036; 84153; 85025

== ENCOUNTER 2023-10-28 21:13 | Emergency (ER) | payer OTHER ==
[~2023-10-28] VITALS: Ht 175.3 cm; Wt 95.7 kg
[2023-10-28 21:17] VITALS: TEMP 97.7
[2023-10-28] MEDS: IpraTROPium/alBUTERol SULFATE 3 ML SOLUTION IH ONE (22:07)
[2023-10-28 22:08] VITALS: PULSE 63; PULSE 65; RESP 13; O2SAT 100
[2023-10-28 22:20] LABS: BASOPHILS # (AUTO) 0.05 K/uL (0.00-0.20); BASOPHILS % (AUTO) 0.7 % (0.0-5.0); EOSINOPHILS # (AUTO) 0.21 K/uL (0.00-0.70); EOSINOPHILS % (AUTO) 2.9 % (0.0-8.0); IMMATURE GRANULOCYTE ABSOLUTE 0.02 K/uL (0-1); LYMPHOCYTES % (AUTO) 27.7 % (21.0-51.0); MEAN CORPUSCULAR HEMOGLOBIN 31.4 pg (27.0-33.0); MEAN CORPUSCULAR HGB CONC 33.3 g/dL (32.0-36.0); MEAN CORPUSCULAR VOLUME 94.3 fL (79-99); MONOCYTES # (AUTO) 0.7 K/uL (0.1-1.0); NEUTROPHILS # (AUTO) 4.3 K/uL (1.8-7.7); NEUTROPHILS % (AUTO) 58.4 % (40.0-77.0); PLATELET COUNT (AUTO) 129 K/uL (130-400); RED BLOOD CELL COUNT(AUTO) 4.77 MIL/uL (4.50-6.20); RED CELL DISTRIBUTION WIDTH 13.6 % (11.0-15.5); WHITE BLOOD COUNT (AUTO) 7.3 K/uL (4.8-10.8)
[2023-10-28 22:31] LABS: CARBON DIOXIDE 30 mmol/L (21-32); CHLORIDE 105 mmol/L (101-111); CREATININE 0.9 mg/dL (0.5-1.3); GLOMERULAR FILTR. RATE CALC 95 mL/min (>90); GLUCOSE,RANDOM 106 mg/dL (70-105); POTASSIUM 3.4 mmol/L (3.5-5.1); SODIUM SERUM 138 mmol/L (136-145); UREA NITROGEN, BLOOD 9 mg/dL (7-18)
[2023-10-28 22:39] LABS: CREATINE KINASE, TOTAL 96 U/L (21-232)
[2023-10-28 22:51] LABS: B-TYPE NATRIURETIC PEPTIDE 13 pg/mL (0-100)
[2023-10-29 00:01] VITALS: BP 133/71; O2SAT 98
[2023-10-29] MEDS: BUDESONIDE 0.5 MG/2 ML INH IH ONE (00:17)
[2023-10-29] MEDS: BUDESONIDE 0.5 MG/2 ML INH IH SCH (00:17)
[2023-10-29 00:18] VITALS: PULSE 61; RESP 14
[2023-10-29 00:21] VITALS: PULSE 61; RESP 13; O2SAT 99
== END 2023-10-29 00:53 | disposition home or self-care (01) ==
LOC: EDH 21:13
DX: R06.00 Dyspnea, unspecified (principal); R06.02 Shortness of breath; R42 Dizziness and giddiness; E03.9 Hypothyroidism, unspecified; E78.00 Pure hypercholesterolemia, unspecified; Z79.899 Other long term (current) drug therapy; Z98.890 Other specified postprocedural states; Z88.0 Allergy status to penicillin; Z88.1 Allergy status to other antibiotic agents
CPT/HCPCS: 36415; 71045; 80048; 82550; 83880; 84484; 85025; 93005; 94640

== ENCOUNTER 2023-11-19 05:39 | Day surgery (SDC) | payer OTHER ==
[2023-11-19] VITALS (10 sets, daily range): BP systolic 131–145; BP diastolic 65–80; PULSE 53–61; RESP 15–17; TEMP 97.3–98.1
[~2023-11-19] VITALS: Ht 175.3 cm; Wt 93.4 kg
[~2023-11-19 05:39] MED LIST changes: -ACET-2079 PO
[2023-11-19] MEDS: 0.9%NACL 1000ML 1,000 ML IV ONE (06:27)
[2023-11-19] MEDS ORDERED: proPOFol 10 MG/ML 20ML VIAL IV ONE (06:35)
[2023-11-19] MEDS ORDERED: GLYCOPYRROLATE 0.2 MG/ML 5 ML VIAL ONE (06:37)
[2023-11-19] MEDS ORDERED: LIDOCAINE PF 100MG/5ML (2%) SYRINGE 5ML ONE (06:48)
== END 2023-11-19 08:35 | disposition home or self-care (01) ==
LOC: ENDO 05:39 → DAH 05:39 → ENDO 08:35
PROVIDERS: ATTEND Internal Medicine
DX: R13.12 Dysphagia, oropharyngeal phase (principal); K29.50 Unspecified chronic gastritis without bleeding; K57.30 Diverticulosis of large intestine without perforation or abscess without bleeding; K20.0 Eosinophilic esophagitis; D12.6 Benign neoplasm of colon, unspecified; R14.2 Eructation; R12 Heartburn; E03.9 Hypothyroidism, unspecified; E78.5 Hyperlipidemia, unspecified; Z90.49 Acquired absence of other specified parts of digestive tract; Z93.1 Gastrostomy status; Z88.1 Allergy status to other antibiotic agents; Z88.8 Allergy status to other drugs, medicaments and biological substances; Z98.890 Other specified postprocedural states; Z79.899 Other long term (current) drug therapy
CPT/HCPCS: 43239; J7030 ×2; J2001; J2704; J3490; A4620; A4215 ×2; A4223; A4657; A4222; A4221; A4663; A4606

== ENCOUNTER → 2023-11-27 | Outpatient (CLI) | payer OTHER ==
[~2023-11-27] MED LIST changes: +IOHEXOL-350 75 ML VIAL IV ONE
== END | disposition home or self-care (01) ==
LOC: RAH 14:38
PROVIDERS: ATTEND Internal Medicine
DX: J98.11 Atelectasis (principal); R91.1 Solitary pulmonary nodule; R06.02 Shortness of breath; M47.814 Spondylosis without myelopathy or radiculopathy, thoracic region; K76.0 Fatty (change of) liver, not elsewhere classified; I51.7 Cardiomegaly; Z90.49 Acquired absence of other specified parts of digestive tract
CPT/HCPCS: 71270; Q9967

== ENCOUNTER → 2024-03-28 | Outpatient (CLI) | payer OTHER ==
[~2024-03-28] MED LIST changes: -IOHEXOL-350 75 ML VIAL IV ONE
[2024-03-28 08:47] LABS: BASOPHILS # (AUTO) 0.05 K/uL (0.00-0.20); BASOPHILS % (AUTO) 0.7 % (0.0-5.0); EOSINOPHILS # (AUTO) 0.12 K/uL (0.00-0.70); EOSINOPHILS % (AUTO) 1.7 % (0.0-8.0); HEMATOCRIT 46.5 % (42-54); IMMATURE GRANULOCYTE ABSOLUTE 0.01 K/uL (0-1); LYMPHOCYTES % (AUTO) 28.3 % (21.0-51.0); MEAN CORPUSCULAR HEMOGLOBIN 31.2 pg (27.0-33.0); MEAN CORPUSCULAR HGB CONC 33.1 g/dL (32.0-36.0); MEAN CORPUSCULAR VOLUME 94.3 fL (79-99); MONOCYTES # (AUTO) 0.5 K/uL (0.1-1.0); MONOCYTES % (AUTO) 7.4 % (3.0-13.0); NEUTROPHILS # (AUTO) 4.4 K/uL (1.8-7.7); NEUTROPHILS % (AUTO) 61.8 % (40.0-77.0); PLATELET COUNT (AUTO) 156 K/uL (130-400); RED BLOOD CELL COUNT(AUTO) 4.93 MIL/uL (4.50-6.20); RED CELL DISTRIBUTION WIDTH 13.7 % (11.0-15.5); WHITE BLOOD COUNT (AUTO) 7.1 K/uL (4.8-10.8)
[2024-03-28 09:05] LABS: ALBUMIN 3.9 g/dL (3.5-5.0); BILIRUBIN,TOTAL 1.4 mg/dL (0.2-1.0); POTASSIUM 3.8 mmol/L (3.5-5.1); THYROID STIMULATING HORMONE 0.06 uIU/mL (0.36-3.74)
== END | disposition home or self-care (01) ==
LOC: LAB 07:53
PROVIDERS: ATTEND Internal Medicine
DX: Z12.5 Encounter for screening for malignant neoplasm of prostate (principal); E78.00 Pure hypercholesterolemia, unspecified; E55.9 Vitamin D deficiency, unspecified
CPT/HCPCS: 36415; 80053; 80061; 82306; 84153; 84443; 85025

== ENCOUNTER → 2024-04-01 | Outpatient (CLI) | payer OTHER ==
--- NOTE | 2024-04-04 14:04 | HMCSR ---
APPROVED REPORT EXAM: Two-dimensional and M-mode echocardiogram with Doppler and color Doppler. INDICATION ICD: Z82.49 Family history of heart disease 2D Dimensions RVDd3.6 cmLVEF(%)59.8 (>50%)LVED Vol(simp.)132.0 mL IVSd0.7 (0.7-1.1cm)FS(%)32 %LVES Vol(simp.)52.5 mL LVDd5.0 (3.8-5.6cm)LA (2D)3.7 (1.6-4.0cm)LVEF(%, simp.)60 % PWd0.8 (0.7-1.1cm)Ao Root(2D)3.5 (2.0-3.7cm)LA ESV INDEX (4CH)27.10 mL/m2 IVSs0.9 cmLVOT diam2.3 (1.8-2.4cm)LA ESV INDEX (2CH)29.50 mL/m2 LVDs3.4 (2.5-4.0cm)LA ESV INDEX (BP)30.00 mL/m2 PWs1.0 cm M-Mode Dimensions EPSS0.4 cm LA (MM)3.8 (1.6-4.0cm) Ao Root(MM)3.8 (2.0-3.7cm) Aortic Valve AoV VTI0.3 mAo Mean GR3.0 mmHgLVOT VTI0.22 m GABE (VMAX)3.2 cm2AVA (VTI) 3.2 cm2 Mitral Valve MV E Vmax72.3 cm/sDECEL Pqsc503 ms MV A Vmax74.7 cm/sP 1/2 T59 ms E/A ratio1.0MVA (PHT)3.7 cm2 TDI E/E' Medial7.6E/E' Lateral7.5 Medial E' Peak V9.50 cm/sLateral E' Peak V9.60 cm/s Pulmonary Valve PV Vmax0.7 m/s PV Peak GR1.9 mmHg Left Ventricle The left ventricle is normal size. There is normal LV segmental wall motion. There is normal left kaley tricular wall thickness. LVEF is 60-65%. Indeterminate diastolic dysfunction. Right Ventricle The right ventricle is normal size. The right ventricular systolic function is normal. Atria The left atrium size is normal. The right atrium size is normal. Aortic Valve The aortic valve is normal in structure. No aortic regurgitation is present. There is no aortic valvu lar stenosis. Mitral Valve The mitral valve is normal in structure. There is no mitral valve regurgitation noted. There is no mi tral valve stenosis. Tricuspid Valve The tricuspid valve is normal in structure. There is no tricuspid valve regurgitation noted. Pulmonic Valve The pulmonary valve is normal in structure. There is no pulmonic valvular regurgitation. Great Vessels The aortic root is normal in size. The IVC is normal in size and collapses >50% with inspiration. Pericardium There is no pericardial effusion. Other Information Quality : Adequate Conclusion There is normal LV segmental wall motion. LVEF is 60-65%. The aortic root is normal in size. There is no pericardial effusion.
== END | disposition home or self-care (01) ==
LOC: RAH 09:03
PROVIDERS: ATTEND Internal Medicine Cardiovascular Disease
DX: C85.90 Non-Hodgkin lymphoma, unspecified, unspecified site (principal); E66.9 Obesity, unspecified; E78.5 Hyperlipidemia, unspecified; E03.9 Hypothyroidism, unspecified; Z82.49 Family history of ischemic heart disease and other diseases of the circulatory system; Z68.30 Body mass index [BMI] 30.0-30.9, adult
CPT/HCPCS: 93306

== ENCOUNTER → 2024-04-22 | Outpatient (CLI) | payer OTHER ==
[2024-04-22 09:00] LABS: THYROID STIMULATING HORMONE 0.02 uIU/mL (0.36-3.74)
--- NOTE | 2024-04-22 11:10 | HMCIMG ---
US THYROID/NECK REASON: maliganant neoplasm of thyroid gland COMPARISON: 04/23/2023 TECHNIQUE: Routine ultrasound was performed of the thyroid bed. Images are compared. FINDINGS: There are normal-appearing soft tissues. There are no focal masses. There is no evidence of recurrent or residual thyroid neoplasm. There is no significant lymphadenopathy. There are a few normal-sized lymph nodes with normal-appearing fatty replaced milly. IMPRESSION: 1. No evidence of residual or recurrent thyroid neoplasm, no change compared to previous exam.
== END | disposition home or self-care (01) ==
LOC: RAH 07:45
PROVIDERS: ATTEND Internal Medicine Endocrinology, Diabetes & Metabolism
DX: C73 Malignant neoplasm of thyroid gland (principal)
CPT/HCPCS: 36415; 76536; 84432; 84439; 84443; 84481; 86800

== ENCOUNTER → 2024-08-03 | Outpatient (CLI) | payer OTHER ==
--- NOTE | 2024-08-03 15:41 | HMCIMG ---
KNEE 3VWS LT REASON: PAIN IN LEFT KNEE TECHNIQUE: 3 views were obtained. FINDINGS: There is no evidence of fracture or dislocation. There is no joint effusion. The soft tissues appear unremarkable. There is no evidence of a radiopaque foreign body. IMPRESSION: No acute findings.
== END | disposition home or self-care (01) ==
LOC: RAH 09:07
PROVIDERS: ATTEND Internal Medicine
DX: M25.562 Pain in left knee (principal)
CPT/HCPCS: 73562

== ENCOUNTER → 2024-08-05 | Outpatient (CLI) | payer OTHER ==
--- NOTE | 2024-08-05 10:39 | HMCIMG ---
MRI of the lumbar spine without gadolinium Clinical Information: M51.16 Intervertebral disc disorders with radiculopathy, lumbar region Comparison: None Technique: Sagittal T1 and T2 FSE, Sagittal STIR and Sagittal proton density images were completed through the lumbosacral spine. Axial T1, T2 and proton density images were also acquired. FINDINGS: There is straightening of the spine consistent with spasm. No fractures or dislocations are identified. Vertebral body height and disc height is preserved at all levels. The bone marrow signal is normal for age. The spinal canal contents are preserved. The conus terminates at a normal level at T12 to L2. The paraspinal muscles and other tissues show no significant abnormalities. Evaluation of the lumbar spine by level: T12-L1: There is no spinal canal stenosis. No disc herniation or bulge is noted. There is no neural foraminal stenosis, impingement, or narrowing. L1-L2: There is no spinal canal stenosis. No disc herniation or bulge is noted. There is no neural foraminal stenosis, impingement, or narrowing. L2-L3: There is no spinal canal stenosis. No disc herniation or bulge is noted. There is no neural foraminal stenosis, impingement, or narrowing. L3-L4: There is no spinal canal stenosis. No disc herniation or bulge is noted. There is no neural foraminal stenosis, impingement, or narrowing. L4-L5: Central zone disc protrusion is seen causing spinal canal stenosis as well as bilateral neural foraminal narrowing and mild nerve root impingement. L5-S1: There is no spinal canal stenosis. No disc herniation or bulge is noted. There is no neural foraminal stenosis, impingement, or narrowing. Impression: Central zone disc protrusion is seen causing spinal canal stenosis as well as bilateral neural foraminal narrowing and mild nerve root impingement at L5-S1. Lumbar spasm.
== END | disposition home or self-care (01) ==
LOC: RAH 09:53
PROVIDERS: ATTEND Internal Medicine
DX: M51.17 Intervertebral disc disorders with radiculopathy, lumbosacral region (principal); M48.07 Spinal stenosis, lumbosacral region; M62.830 Muscle spasm of back
CPT/HCPCS: 72148

== ENCOUNTER → 2024-08-10 | Outpatient (CLI) | payer OTHER ==
[2024-08-10 08:25] LABS: THYROID STIMULATING HORMONE 1.6 uIU/mL (0.36-3.74)
== END | disposition home or self-care (01) ==
LOC: LAB 07:33
PROVIDERS: ATTEND Internal Medicine Endocrinology, Diabetes & Metabolism
DX: E03.9 Hypothyroidism, unspecified (principal)
CPT/HCPCS: 36415; 84439; 84443; 84481

== ENCOUNTER → 2024-09-23 | Outpatient (CLI) | payer OTHER | END | disposition home or self-care (01) | LOC: LAB 07:41 | PROVIDERS: ATTEND Internal Medicine Endocrinology, Diabetes & Metabolism | DX: E03.9 Hypothyroidism, unspecified (principal) | CPT/HCPCS: 36415; 84439; 84443; 84481 ==